=== PATIENT | female | born 1980 | race African-American/Black ===

== ENCOUNTER 2025-07-05 20:14 | Emergency (ER) | payer BC, OTHER ==
[~2025-07-05] VITALS: Ht 180.3 cm; Wt 83.9 kg
[2025-07-05] MEDS: IV NS 0.9% 1,000 ML BAG IV ONE (20:44)
[2025-07-05 20:49] LABS: PLATELET COUNT (AUTO) 167 K/uL (150-450); RED BLOOD CELL COUNT(AUTO) 4.90 MIL/uL (4.0-5.2); RED CELL DISTRIBUTION WIDTH 14.1 % (11.5-15.0); WHITE BLOOD COUNT (AUTO) 4.3 K/uL (4.3-11.0)
[2025-07-05 20:56] LABS: CALCIUM, SERUM 9.1 mg/dL (8.5-10.1); CREATININE 0.9 mg/dL (0.6-1.3); SODIUM SERUM 141.0 mmol/L (136-145); UREA NITROGEN, BLOOD 12.0 mg/dL (7-18)
[2025-07-05 21:00] LABS: PHOSPHORUS 3.6 mg/dL (2.5-4.9)
[2025-07-05 22:38] VITALS: BP 117/59; TEMP 98.4; O2SAT 99
== END 2025-07-05 22:38 | disposition home or self-care (01) ==
LOC: ER 20:16
DX: R25.3 Fasciculation (principal); E78.5 Hyperlipidemia, unspecified; I51.9 Heart disease, unspecified; R94.31 Abnormal electrocardiogram [ECG] [EKG]; R51.9 Headache, unspecified
CPT/HCPCS: 36415; 70450-TC; 80048-TC; 83735-TC; 84100-TC; 84703-TC; 85025-TC